=== PATIENT | male | born 1955 | race Caucasian/White ===

== ENCOUNTER 2017-07-01 15:03 | Emergency (ER) | END 2017-07-01 19:08 | disposition home or self-care (01) ==

== ENCOUNTER 2018-12-24 15:16 | Emergency (ER) | payer BC ==
[~2018-12-24] VITALS: Ht 177.8 cm; Wt 81.2 kg
[~2018-12-24 15:16] MED LIST: HYDR-4011 PO; MED4DP PO; METH750T93 PO; NAPR-688 PO
[2018-12-24 15:19] VITALS: BP 162/76; PULSE 85; RESP 18; Ht 177.8 cm; Wt 81.2 kg
--- NOTE | 2018-12-24 16:18 | ERD ---
ER Documentation Chief Complaint Chief Complaint right achilles pain x 2 weeks; hiking for the past year HPI Patient is a 63 years old male with PMHx of tendonitis presenting to the clinic for right Achilles tendon injury x 2 weeks. Patient reports area is warm and worsens with activity. Patient admits to hiking 1 week ago which worsened his pain. Patient currently takes OTC ibuprofen, ICE application and tries to rest his right leg as much as possible. Patient admits full ROM with resolution of symptoms with ICE and Ibuprofen. Patient is concerned that his symptoms are persistent. Patient denies all other medical history with NKDA. ROS All systems reviewed and are negative except as per history of present illness. Medications Home Meds Active Scripts Methylprednisolone* (Medrol* DOSE PACK) 4 Mg/Dose-Pack Tab.ds.pk, 4 MG PO . DIRECTED for 5 Days, PACKET Prov:MELISA GOMEZ PA-C 12/24/18 Methocarbamol* (Robaxin*) 750 Mg Tablet, 750 MG PO Q6H PRN for MUSCLE SPASMS, #20 TAB Prov:CAROLINA HERCULES DO 07/01/17 Hydrocodone/Acetaminophen ([place] 5-325 Tablet) 1 Each Tablet, 1 EACH PO Q6 for SEVERE PAIN LEVEL 7-10, #17 TAB Prov:CAROLINA HERCULES DO 07/01/17 Naproxen* (Naproxen*) 500 Mg Tablet, 500 MG PO BID PRN for PAIN, #20 TAB Prov:CAROLINA HERCULES DO 07/01/17 Allergies Allergies: Coded Allergies: No Known Drug Allergies (Verified Allergy, Unknown, 07/01/17) PMhx/Soc History of Surgery: No Anesthesia Reaction: No Hx Neurological Disorder: No Hx Respiratory Disorders: No Hx Cardiac Disorders: No Hx Psychiatric Problems: No Hx Miscellaneous Medical Probl: No Hx Alcohol Use: No Hx Substance Use: No Hx Tobacco Use: No Smoking Status: Never smoker Physical Exam Vitals Vital Signs Date Temp Pulse Resp B/P (MAP) Pulse Ox O2 O2 Flow FiO2 Time Delivery Rate 12/24/18 98.6 85 18 162/76 98 15:19 (104) Physical Exam Const: No acute distress Head: Atraumatic Resp: Clear to auscultation bilaterally Cardio: Regular rate and rhythm, no murmurs Psych: Normal Mood and Affect Right lower extremity/foot exam: Mild swelling with tenderness around Achilles tendon. Negative Conn test. Full range of motion of right foot. No crepitus. Results 24 hrs Current Medications Medications Dose Sig/Saadia Start Time Status Last (Trade) Ordered Route PRN Stop Time Admin Dose Reason Admin Ketorolac 30 mg ONCE STAT 12/24/18 DC 12/24/18 Tromethamine IM 16:20 12/24/18 16:29 (Toradol) 16:22 125 mg ONCE ONCE 12/24/18 DC 12/24/18 Methylprednis IM 16:30 12/24/18 16:28 olone Sodium 16:31 Succinate (Solu-Medrol) Procedures/MDM Patient was seen and evaluated for right Achilles tendon injury without complications. Patient is most likely experiencing tendinitis without tear. Toradol and Solu-Medrol IM administered in ED with significant improvement of symptoms. Low suspicion for fracture. Patient stable ready for discharge. Follow-up with PCP. Patient will be discharged with Medrol Dosepak and was advised to continue taking ibuprofen 800 mg. Patient was advised about continued ice application versus heat therapy. Patient was advised to avoid workouts for 1 week. Departure Diagnosis: Primary Impression: Tendonitis Condition: Stable Patient Instructions: Tendonitis Referrals: [facility] Additional Instructions: Patient advised to return to the ED immediately for new or worsening symptoms. Patient advised to follow up with primary care provider in the next 24-48 hours. Patient verbalized understanding and agrees with treatment plan and course of action. If patient has no primary care they may follow up with [facility] [address] [place] [id number] or [facility] [address] [place] [address] [place] [facility] [place] [address] [place] [address] MELISA GOMEZ PA-C Dec 24, 2018 16:18
[2018-12-24] MEDS ORDERED: KETOROLAC 30 MG INJ IM STA (16:20)
[2018-12-24] MEDS ORDERED: METHYLPREDNISOLONE 125 MG INJ IM ONE (16:30)
== END 2018-12-24 16:48 | disposition home or self-care (01) ==
LOC: FTE 15:16
DX: M76.61 Achilles tendinitis, right leg (principal)
CPT/HCPCS: 96372; 99284; J1885; J2930